=== PATIENT | male | born 1960 | race Caucasian/White ===

== ENCOUNTER 2023-10-11 17:07 | Emergency (ER) | payer OTHER, SELFPAY ==
--- NOTE | ~2023-10-11 | CT_ITS ---
EXAMINATION: CT CERVICAL SPINE WITHOUT CONTRAST CLINICAL INFORMATION: Head strike. COMPARISON: None available. TECHNIQUE: Noncontrast computed tomography of the cervical spine was performed. This CT examination was performed using dose optimization techniques as appropriate, variously including the following: *Automated exposure control *Adjustment of mA and/or kV according to patient size (this includes techniques or standardized protocols for targeted exams where dose is matched to indication/reason for exam; i.e. extremities or head) *Use of iterative reconstruction technique DLP: 1370 mGy-cm FINDINGS: There is grade 1 anterolisthesis of C4 in relation to C5. Cervical spinal alignment is otherwise anatomic. The C1-C2 relationship is anatomic. The facet joints are anatomically aligned. Vertebral body heights are maintained. There is mild narrowing of the C5-C6 and C6-C7 intervertebral disc spaces. There is no acute cervical spine fracture. The prevertebral soft tissue is normal in appearance. Paraspinal soft tissue is normal in appearance. There is multilevel uncovertebral joint hypertrophy and facet arthropathy resulting in multilevel foraminal narrowing of various degrees. Facet arthropathy and uncovertebral joint hypertrophy is most severe at C4-C5 where there is severe right foraminal narrowing and mild to moderate left foraminal narrowing. The lung apices are clear. There is a partially calcified nodule measuring 8 mm within the right lobe of the thyroid gland. Ultrasound can be performed as clinically indicated. The thyroid gland is otherwise normal in appearance. CT/CT cervical spine wo IV con IMPRESSION: There is no acute osseous cervical spine abnormality. Grade 1 anterolisthesis of C4 in relation to C5 is felt to be to be related to degenerative facet change. Fleischner guidelines were followed.
--- NOTE | ~2023-10-11 | CT_ITS ---
EXAMINATION: CT HEAD WITHOUT CONTRAST CLINICAL INFORMATION: Head strike. COMPARISON: None available. TECHNIQUE: Contiguous axial imaging was performed from the skull base to vertex without intravenous administration of contrast. This CT examination was performed using dose optimization techniques as appropriate, variously including the following: *Automated exposure control *Adjustment of mA and/or kV according to patient size (this includes techniques or standardized protocols for targeted exams where dose is matched to indication/reason for exam; i.e. extremities or head) *Use of iterative reconstruction technique DLP: 760 mGy-cm FINDINGS: There is no acute intracranial hemorrhage. There is no evidence of acute/subacute cerebral or cerebellar infarction. There is no mass effect or midline shift. There is no extra-axial fluid collection. The ventricles are normal in size. There is calcific atherosclerotic disease throughout the cavernous carotid arteries. The orbits are symmetric and within normal limits. The mastoid air cells are clear. The visualized paranasal sinuses are well aerated. CT/CT head/brain wo IV con IMPRESSION: No acute intracranial pathology.
--- NOTE | 2023-10-11 17:28 | ED_ITS ---
HPI - General Adult General Chief complaint: Wound/Laceration Stated complaint: FALL LAC ABOVE R EYE Time Seen by Provider: 10/11/23 20:37 Source: patient, family (patient's provided additional history and confirmed the history provided by the patient) and EMS Mode of arrival: EMS Limitations: no limitations History of Present Illness HPI narrative: Patient is a 63 year old assigned male at with a history of RA presenting to the emergency department today with a right forehead laceration. Patient states that he tripped in his bathroom and hit the right side of his forehead on a toilet paper pearson. Patient denies any dizziness, lightheadedness, abdominal pain, nausea, vomiting, fever, chills, blurry vision, double vision, loss of vision, chest pain, difficulty breathing, shortness of breath, back pain, night sweats, pain with urination, increased urinary frequency, increased urinary urgency, blood in his urine or stool, syncope or a near syncopal episode, bowel incontinence, bladder incontinence, bowel retention, bladder retention, or any other complaints at this time. Patient denies any loss of consciousness with the incident. Onset (ago): minute(s) Location: face and right Radiation: non-radiation Severity: mild Severity scale (1-10): 4 Pain Consistency: constant Relieving factors: none Exacerbating factors: none Associated symptoms: denies other symptoms Treatments prior to arrival: none Related Data Previous Rx's ?Medication ?Instructions ?Recorded cephalexin 500 mg capsule 500 mg PO Q6H 7 days #28 caps 10/11/23 hydrocodone 5 mg-acetaminophen 300 1 tab PO Q6H PRN pain #5 tabs 10/11/23 mg tablet Allergies Allergy/AdvReac Type Severity Reaction Status Date / Time oxycodone [OXYCODONE] Allergy Intermediate RASH Verified 10/11/23 17:31 Review of Systems 2 Constitutional: Constitutional: Reports no additional constitutional complaints, Denies chills, Denies fever(s) and Denies night sweats Comments: right eyebrow/facial laceration Eyes: Eyes: Reports no additional eye complaints, Denies blurry vision, Denies change in vision, Denies diplopia, Denies eye discharge, Denies loss of vision and Denies eye pain ENT: Denies dizziness Cardiovascular: Cardiovascular: Reports no additional cardiovascular complaints, Denies chest pain, Denies lightheadedness, Denies Loss of Consciousness and Denies dyspnea Respiratory: Respiratory: Reports no additional respiratory complaints and Denies dyspnea Gastrointestinal: Gastrointestinal: Reports no additional gastrointestinal complaints, Denies abdominal pain, Denies melena, Denies hematochezia, Denies change in bowel habits and Denies change in stool character Genitourinary: Genitourinary: Reports no additional male genitourinary complaints, Denies hematuria, Denies oliguria, Denies difficulty urinating, Denies dysuria, Denies urinary frequency, Denies urinary hesitancy, Denies urinary incontinence and Denies urinary urgency Musculoskeletal: Musculoskeletal: Reports no additional musculoskeletal complaints, Denies numbness and Denies tingling Neurologic: Denies dizziness, Denies loss of vision, Denies numbness and Denies tingling Psychiatric: Psychiatric: Reports no additional psychiatric complaints Endocrine: Endocrine: Reports no additional endocrine complaints Hematologic/Lymphatic: Hematologic/Lymphatic: Reports no additional hematologic/lymphatic complaints Allergic/Immunologic: Allergic/Immunologic: Reports no additional allergic/immunologic complaints PMFSH Past Medical History Attestation statement: The following information was validated with the patient. (patient's validated all information) Source: old records reviewed, obtained from family (patient's provided additional history and confirmed the history provided by the patient) and nursing notes reviewed Social History Social History Advance Directives: No Advance Directives Information Provided: No Do you have a plan to hurt others: No Plan Physical Exam ED Vital Signs: Vital Signs - 24 hr 10/11/23 17:29 10/11/23 20:40 10/11/23 23:42 Temperature 96.7 F L 96.7 F L 97.7 F Pulse Rate 84 75 89 Respiratory Rate 16 18 18 Blood Pressure 136/63 142/66 H 152/84 H Pulse Oximetry 95 98 99 Oxygen Delivery Method Room Air Room Air Room Air BMI result Body Mass Index 35.0 Const General: cooperative, no acute distress, alert and awake Nutritional Appearance: well nourished Orientation/consciousness: patient oriented x3 Limitations: no limitations HENMT Ears: hearing grossly normal bilaterally and external ears normal General nose exam: Normal external nose present, no nasal discharge noted and no epistaxis Face images: 2 1. 5.5cm laceration Mouth: Normal oral and palatal mucosa present, no drooling and no muffled voice Eyes General: appearance normal, both eyes and all related structures Periorbital: periorbital findings normal Eyelids: Yes eyelids normal Conjunctivae: conjunctivae normal Pupils: Equal, round and reactive pupils present EOM: EOMs intact bilaterally Neck Neck: Yes normal visual inspection, Yes full ROM and Yes no lymphadenopathy Chest Chest palpation & inspection: normal inspection of the chest Resp Effort & Inspection: normal respiratory effort and able to speak in complete sentences GI Inspection: Yes normal to inspection Neuro General: patient oriented x3 and moves all extremities Cranial nerves: Yes Equal, round and reactive pupils present Cognition (Neuro): normal cognition Motor exam (neuro): 5/5 motor strength present throughout Sensory Exam: Normal double simultaneous stimulation for sensation Coordination: [id number] test normal Extrem General: Yes normal to inspection, Yes full ROM and Yes capillary refill normal Psych Appearance: grossly normal Mental Status: mental status grossly normal Affect: normal affect Attitude: cooperative Thought process: Normal thought process present Thought content: Normal thought content present Insight: Good insight present (Psych) Course Course Course Narrative: This is an RME: Additional HPI, ROS, PE not included below will be deferred to primary provider. 63 yo m presents with head lac above right eyebrow. Pt states he fell and hit head on toilet paper roll. Denies LOC, dizziness, cp, sob. Medications Administered Discontinued Medications Generic Name Dose Route Start Last Admin Trade Name Abilio PRN Reason Stop Dose Admin Hydrocodone Bitart/Acetaminophen 1 tab 10/11/23 22:16 10/11/23 22:58 Hydrocodone Bit/Acetam 5/325 Tablet PO 10/11/23 22:17 1 tab ONCE ONE Administration Lidocaine HCl 15 ml 10/11/23 20:50 10/11/23 21:22 Lidocaine Hcl 1 % Mpf 5 Ml Vial SUBCUT 10/11/23 20:51 15 ml ONCE ONE Administration Naloxone HCl 8 mg 10/11/23 22:16 10/11/23 22:58 Naloxone Hcl Nasal Take Home 4 Mg [place] NOSTRILALT 10/11/23 22:17 8 mg ONCE ONE Administration Procedures Laceration Laceration 1: Site: face Side (If applicable): right Size (cm): 5.5 Description: linear Depth: simple, single layer Local Anesthetic: lidocaine 1% Amount of anesthesia used (mL): 10 Pre-repair: wound explored, irrigated extensively and deep structures intact Skin layer closed with: other (prolene) Size (cm): 6-0 Number of sutures: 12 Technique: simple, interrupted Subcutaneous layer closed with: vicryl Size: 6-0 Number of sutures: 1 Technique: simple, interrupted Medical Decision Making Medical Decision Making [facility] Narrative: Patient is a 63 year old assigned male at with a history of RA presenting to the emergency department today with a right sided facial laceration. Patient's physical exam was as noted in the physical exam portion of this note. Patient's head and c-spine CTs showed no acute process. I explained my physical exam findings as well as all test results to the patient and the patient's . I answered all questions asked by the patient and the patient's . Patient's laceration was repaired, without incident. I stressed the importance of the patient taking his medication as prescribed. I stressed the importance of the patient following up with his primary care provider. I stressed the importance of the patient returning to the emergency department immediately if his symptoms were to worsen or if he were to develop any dizziness, shortness of breath, difficulty breathing, chest pain, blurry vision, loss of vision, nausea, vomiting, abdominal pain, fever, chills, back pain, or any other complaints. Patient and the patient's verbalized agreement and understanding with this treatment plan and discharge. Differential Diagnosis Differential Diagnoses: The differential diagnosis associated with the presentation includes Facial laceration Head injury Fall Admission/Observation Consideration of admission/observation: Escalation of care including admission/observation considered Patient would have been admitted to the hospital had his work up had any findings where hospital admission was appropriate and his clinical presentation warranted hospital admission. Lab Data [facility] Lab Attestation statement: I reviewed the patient's lab results. My interpretation of these studies and their corresponding values is that they are grossly normal. 10/11/23 17:52 10/11/23 17:52 Labs: Lab Results 10/11/23 Range/Units 17:52 WBC 8.5 (4.8-10.8) X10*3/uL RBC 4.04 L (4.60-5.80) X10*6/uL Hgb 12.0 L (14.0-18.0) g/dl Hct 35.5 L (42.0-52.0) % MCV 87.9 (80.0-98.0) fL MCH 29.7 (27.0-33.0) pg MCHC 33.8 (31.0-36.0) g/dl RDW 14.1 (11.0-16.0) % Plt Count 206 (160-400) X10*3/uL MPV 10.2 (9.4-12.4) fL Immature Gran % (Auto) 0.6 H (0.0-0.4) % Neut % (Auto) 45.9 (45-73) % Lymph % (Auto) 42.5 H (20-40) % [place] % (Auto) 8.9 (2-11) % Eos % (Auto) 1.4 (0-4) % Baso % (Auto) 0.7 (0-2) % Lymph # (Auto) 3.6 (1.2-4.9) X10*3/uL [place] # (Auto) 0.8 (0.1-1.2) X10*3/uL Eos # (Auto) 0.1 (0.0-0.4) X10*3/uL Baso # (Auto) 0.1 (0.0-0.2) X10*3/uL Abs Immat Gran (auto) 0.05 H (0.00-0.03) X10*3/uL Absolute Neuts (auto) 3.9 (2.0-8.3) x10*3/uL Absolute Nucleated RBC 0.000 (0.0-0.012) X10*3/uL Nucleated RBC % (auto) 0.0 (0.0-0.2) /100WBC PT 11.6 (11.1-13.3) SEC INR 1.0 (0.9-1.1) Sodium 136 (135-145) mmol/L Potassium 3.9 (3.3-5.1) mmol/L Chloride 105 (96-108) mmol/L Carbon Dioxide 20 L (22-29) mmol/L Anion Gap 15 (12-20) BUN 18 H (9-16) mg/dL Creatinine 0.96 (0.5-1.4) mg/dL Estim Creat Clear Calc 89.8 Estimated GFR > 60 Random Glucose 102 (60-115) mg/dL Calcium 9.4 (8.4-10.2) mg/dL Total Bilirubin 0.3 (0.0-1.0) mg/dL AST 38 H (5-37) U/L ALT 44 H (0-40) U/L Alkaline Phosphatase 96 (39-117) U/L Total Protein 7.4 (6.5-8.0) g/dL Albumin 4.4 (3.5-5.0) g/dL Ethyl Alcohol 117 mg/dL Independent Interpretation I performed an independent interpretation of an: CT Scan Interpretation: My interpretation is in agreement with the radiologist's impression of these imaging studies. - EXAMINATION: CT HEAD WITHOUT CONTRAST CLINICAL INFORMATION: Head strike. COMPARISON: None available. TECHNIQUE: Contiguous axial imaging was performed from the skull base to vertex without intravenous administration of contrast. This CT examination was performed using dose optimization techniques as appropriate, variously including the following: *Automated exposure control *Adjustment of mA and/or kV according to patient size (this includes techniques or standardized protocols for targeted exams where dose is matched to indication/reason for exam; i.e. extremities or head) *Use of iterative reconstruction technique DLP: 760 mGy-cm FINDINGS: There is no acute intracranial hemorrhage. There is no evidence of acute/subacute cerebral or cerebellar infarction. There is no mass effect or midline shift. There is no extra-axial fluid collection. The ventricles are normal in size. There is calcific atherosclerotic disease throughout the cavernous carotid arteries. The orbits are symmetric and within normal limits. The mastoid air cells are clear. The visualized paranasal sinuses are well aerated. CT/CT head/brain wo IV con IMPRESSION: No acute intracranial pathology. Dictated By: Davis Mendez Jr, DO Signed By: Electronically signed by Davis Mendez Jr, DO 10/11/23 1928 - EXAMINATION: CT CERVICAL SPINE WITHOUT CONTRAST CLINICAL INFORMATION: Head strike. COMPARISON: None available. TECHNIQUE: Noncontrast computed tomography of the cervical spine was performed. This CT examination was performed using dose optimization techniques as appropriate, variously including the following: *Automated exposure control *Adjustment of mA and/or kV according to patient size (this includes techniques or standardized protocols for targeted exams where dose is matched to indication/reason for exam; i.e. extremities or head) *Use of iterative reconstruction technique DLP: 1370 mGy-cm FINDINGS: There is grade 1 anterolisthesis of C4 in relation to C5. Cervical spinal alignment is otherwise anatomic. The C1-C2 relationship is anatomic. The facet joints are anatomically aligned. Vertebral body heights are maintained. There is mild narrowing of the C5-C6 and C6-C7 intervertebral disc spaces. There is no acute cervical spine fracture. The prevertebral soft tissue is normal in appearance. Paraspinal soft tissue is normal in appearance. There is multilevel uncovertebral joint hypertrophy and facet arthropathy resulting in multilevel foraminal narrowing of various degrees. Facet arthropathy and uncovertebral joint hypertrophy is most severe at C4-C5 where there is severe right foraminal narrowing and mild to moderate left foraminal narrowing. The lung apices are clear. There is a partially calcified nodule measuring 8 mm within the right lobe of the thyroid gland. Ultrasound can be performed as clinically indicated. The thyroid gland is otherwise normal in appearance. CT/CT cervical spine wo IV con IMPRESSION: There is no acute osseous cervical spine abnormality. Grade 1 anterolisthesis of C4 in relation to C5 is felt to be to be related to degenerative facet change. Fleischner guidelines were followed. Dictated By: Davis Mendez Jr, DO Signed By: Electronically signed by Davis Mendez Jr, DO 10/11/231933 Radiology Impression Discussion of test interpretation with radiology: I have reviewed the radiologist's reading. Independent Historian Clinical information obtained from an independent historian. History obtained from or confirmed by: Spouse (Patient's provided additional history and confirmed the history provided by the patient. ) and EMS (EMS provided additional history and confirmed the history provided by the patient.) Prescription Management I considered prescription management with: Antibiotic (patient prescribed a prophylactic antibiotic.) Critical Care Time Critical Care Time Critical Care Time: Yes Total Critical Care Time: 129 Attestation: I spent 129 minutes of Critical Care Time with this patient. This does not include time spent on separately reported billable procedures. Discharge Plan Discharge Clinical Impression: Laceration Patient Disposition: Home, Self-Care Instructions: Care For Your Stitches (DC), Laceration (DC) Additional Instructions: Do NOT soak the affected area. Have your sutures removed in 10-12 days. Perform daily wound checks and dressing changes. Take your antibiotic as prescribed. Follow up with your primary care provider. Return to the emergency department immediately if your symptoms worsen or if you develop any dizziness, shortness of breath, difficulty breathing, chest pain, blurry vision, loss of vision, nausea, vomiting, abdominal pain, fever, chills, back pain, or any other complaints. Prescriptions: New cephalexin 500 mg capsule 500 mg PO Q6H 7 Days Qty: 28 0RF hydrocodone-acetaminophen 5-300 mg tablet 1 tab PO Q6H PRN (Reason: pain) Qty: 5 0RF Rx Instructions: Partial Fill upon patient request. Interventions: ED Discharge Assessment Last Done: 10/11/23 23:42 Discharge Date/Time: 10/11/23 23:00 Print Language: Mauritanian
[2023-10-11 17:29] VITALS: BP 136/63; PULSE 84; RESP 16; TEMP 35.9; O2SAT 95; BMI 35.0
[2023-10-11 17:55] LABS: MANUAL DIFF FLAG NO
[2023-10-11 18:18] LABS: Alanine Aminotransferase 44 U/L (0-40); Albumin Level 4.4 g/dL (3.5-5.0); Alkaline Phosphatase 96 U/L (39-117); Anion Gap 15 (12-20); Aspartate Amino Transferase 38 U/L (5-37); Bilirubin Total 0.3 mg/dL (0.0-1.0); Blood Urea Nitrogen 18 mg/dL (9-16); Calcium 9.4 mg/dL (8.4-10.2); Carbon Dioxide 20 mmol/L (22-29); Chloride 105 mmol/L (96-108); Creatinine Clr Calc Pharmacy 89.8; Estimated Glomerular Filt Rate > 60; Ethanol 117 mg/dL; Glucose Random 102 mg/dL (60-115); Potassium 3.9 mmol/L (3.3-5.1); Sodium 136 mmol/L (135-145); Total Protein 7.4 g/dL (6.5-8.0)
[2023-10-11 18:21] LABS: Basophils Absolute Auto 0.1 X10*3/uL (0.0-0.2); Basophils Percent Auto 0.7 % (0-2); Eosinophils Absolute Auto 0.1 X10*3/uL (0.0-0.4); Eosinophils Percent Auto 1.4 % (0-4); Hematocrit 35.5 % (42.0-52.0); Imm Gran Abs Auto 0.05 X10*3/uL (0.00-0.03); Imm Gran Pct Auto 0.6 % (0.0-0.4); Lymphocytes Absolute Auto 3.6 X10*3/uL (1.2-4.9); Lymphocytes Percent Auto 42.5 % (20-40); Mean Corpuscular HGB Conc 33.8 g/dl (31.0-36.0); Mean Corpuscular Hemoglobin 29.7 pg (27.0-33.0); Mean Corpuscular Volume 87.9 fL (80.0-98.0); Mean Platelet Volume 10.2 fL (9.4-12.4); Monocytes Absolute Auto 0.8 X10*3/uL (0.1-1.2); Monocytes Percent Auto 8.9 % (2-11); Neutrophils Absolute Auto 3.9 x10*3/uL (2.0-8.3); Neutrophils Percent Auto 45.9 % (45-73); Platelet Count 206 X10*3/uL (160-400); Red Blood Count 4.04 X10*6/uL (4.60-5.80); Red Cell Distribution Width 14.1 % (11.0-16.0); White Blood Count 8.5 X10*3/uL (4.8-10.8)
[2023-10-11 18:22] LABS: Prothrombin Time 11.6 SEC (11.1-13.3)
[2023-10-11 20:40] VITALS: BP 142/66; PULSE 75; RESP 18; TEMP 35.9; O2SAT 98
[2023-10-11] MEDS: Lidocaine HCl 1 % MPF 5 ML VIAL 15 ML SUBCUT (21:22)
[2023-10-11] MEDS: Naloxone HCl Nasal TAKE HOME 4 MG SPRAY 8 MG NOSTRILALT (22:58)
[2023-10-11] MEDS: HYDROcodone Bit/Acetam 5/325 TABLET 1 TAB PO (22:58)
[2023-10-11 23:42] VITALS: BP 152/84; PULSE 89; RESP 18; TEMP 36.5; O2SAT 99
== END 2023-10-11 23:00 | disposition home or self-care (01) ==
PROVIDERS: Physician Assistant; Emergency Provider Emergency Medicine; PCP Nurse Practitioner Family
DX: S01.81XA Laceration without foreign body of other part of head, initial encounter (principal); M54.2 Cervicalgia; R51.9 Headache, unspecified; M79.18 Myalgia, other site; W01.10XA Fall on same level from slipping, tripping and stumbling with subsequent striking against unspecified object, initial encounter; Y93.9 Activity, unspecified; Y92.002 Bathroom of unspecified non-institutional (private) residence as the place of occurrence of the external cause; Y99.8 Other external cause status; Z79.899 Other long term (current) drug therapy; Z51.81 Encounter for therapeutic drug level monitoring
CPT/HCPCS: 12053; 36415; 70450; 72125; 80053; 80307; 85025; 85610; 99284